=== PATIENT | male | born 1975 | race Caucasian/White ===

== ENCOUNTER → 2017-01-22 09:09 | Outpatient (CLI) | payer OTHER ==
--- NOTE | 2017-01-25 12:49 | EC ---
PATIENT:AJAY HASTINGS DATE OF SERVICE: 01/22/17 SEX: M MEDICAL RECORD: [id number] DATE OF : [birth year] LOCATION:[facility] AGE OF PATIENT: 41 ADMISSION DATE: 01/22/17 REFERRING PHYSICIAN: INTERPRETING PHYSICIAN: PENNY GREENFIELD MD ECHOCARDIOGRAM REPORT ECHO CHARGES 4 ECHO COMPLETE CLINICAL DIAGNOSIS: CP ECHOCARDIOGRAPHIC MEASUREMENTS (adult normal given) AC root (d.<3.7cm) 3.6 cm LV Septum d (<1.2 cm> 1.1 cm Valve Excursion 2.5 cm LV Septum (systole) 1.6 cm Left Atria (s.<4.0cm> 3.7 cm LVPW d(<1.2cm) 1.1 cm RV (d.<2.3cm) 2.9 cm LVPW (sytole) 1.7 cm LV diastole(<5.6CM) 5.1 cm MV E-F(>70mm/sec) cm LV systole 3.4 cm LVOT Diameter 2.4 cm MV exc.(>10mm) cm Est.ejection fraction (50-75%) % Pericardial Effusion N DOPPLER: LVIT cm/sec A 76.0 cm/sec E 59.0 cm/sec LA cm/sec RVSP 27.0 mmHg LVOT 101 cm/sec AOP1/2T m/s Asc. Ao 119 cm/sec RVOT 75.0 cm/sec RA cm/sec PA 99.0 cm/sec AV Gradient Peak 5.7 mmHg AV Mean 2.8 mmHg AV Area 3.7 cm MV Gradient Peak 3.5 mmHg MV Mean 1.4 mmHg MV Area cm COMMENTS: Can Machine Operator: Anup RODRIGUEZOE Wet Process Technician: 4 Dr. Greenfield TAPE# PACS DATE OF SERVICE: 01/22/2017 PROCEDURE: Transthoracic echocardiogram. FINDINGS: 1. The patient has mild concentric left ventricular hypertrophy with inflow characteristics consistent with diastolic dysfunction with a preserved LV ejection fraction of 60% and there is no regional wall motion abnormalities visualized. 2. The mitral valve is normal. ECHOCARDIOGRAM REPORT [id number] AJAY HASTINGS 3. The tricuspid valve is normal. 4. Pericardium: There is no pericardial effusion. 5. The pulmonic valve is not well visualized, but grossly normal. 6. The right atrium and the right ventricle is normal size, normal function. 7. The right ventricular systolic pressure is normal. 8. The interatrial septum appears to be normal. IMPRESSION: The patient has evidence of mild hypertensive heart disease with normal chamber sizes, otherwise no significant valvular abnormalities. TRANSINT:[id number] Voice Confirmation ID: [id number] DOCUMENT ID: [id number] PENNY GREENFIELD MD at 1249 CC: [id number] DICTATION DATE: 01/23/17 1226 ELEMENTARY ESL TEACHER: 01/23/17 1231 DEP CLI 01/22/17 [facility] [address] [place] [address]
== END | disposition home or self-care (01) ==
LOC: D.ECHO 09:09
DX: R07.9 Chest pain, unspecified (principal); R07.2 Precordial pain; E11.9 Type 2 diabetes mellitus without complications; F17.200 Nicotine dependence, unspecified, uncomplicated